=== PATIENT | male | born 1990 | race African-American/Black ===

== ENCOUNTER 2022-07-21 18:12 | Emergency (ER) | payer OTHER ==
[2022-07-21] MEDS ORDERED: LIDOCAINE 1% MPF 5 ML VIAL ONE (18:35)
--- NOTE | 2022-07-21 19:41 | EDPHYS ---
Physician Documentation [facility] Name: Yusef Aponte Age: 32 yrs Sex: Male : 1990 Arrival Date: 07/21/2022 Time: 18:14 Bed 14 Private MD: ED Physician Andrea Tristan HPI: 07/21 19:40 This 32 yrs old Black Male presents to ER via [employer] with complaints of kb Abscess. 19:40 The patient presents with an abscess of the right cheek. Description: erythematous, kb swollen, warm. Onset: The symptoms/episode began/occurred yesterday. Possible cause(s): unknown. Associated signs and symptoms: Pertinent positives: erythema, swelling. Modifying factors: the symptoms are alleviated by nothing, the symptoms are aggravated by nothing. Severity of symptoms: At their worst the symptoms were mild, in the emergency department the symptoms are unchanged. The patient has not experienced similar symptoms in the past. The patient has not recently seen a physician. Historical: - Allergies: 18:16 No Known Allergies; bp - Home Meds: 18:16 None [Active]; bp - PMHx: 18:16 None; bp - Immunization history:: Adult Immunizations up to date. - Social history:: Smoking status: unknown. ROS: 19:39 Constitutional: Negative for fever, chills, and weight loss. kb 19:39 Skin: Positive for abscess, of the right cheek. 19:39 All other systems are negative. Exam: 19:39 Constitutional: This is a well developed, well nourished patient who is awake, alert, kb and in no acute distress. Head/Face: Normocephalic, atraumatic. ENT: Moist Mucous membranes Cardiovascular: Regular rate and rhythm with a normal S1 and S2. No gallops, murmurs, or rubs. No pulse deficits. Respiratory: Respirations even and unlabored. No increased work of breathing. Talking in full sentences MS/ Extremity: Pulses equal, no cyanosis. Neurovascular intact. Full, normal range of motion. Neuro: Awake and alert, GCS 15, oriented to person, place, time, and situation. Moves all extremities. Normal gait. Psych: Awake, alert, with orientation to person, place and time. Behavior, mood, and affect are within normal limits. 19:39 Skin: abscess, that is small, of the right cheek, with induration. Vital Signs: 18:14 BP 128 / 74; Pulse 55; Resp 16; Temp 98; Pulse Ox 97% ; Weight 79.38 kg; Height 5 ft. bp 10 in. (177.80 cm); 19:45 BP 127 / 88; Pulse 51; Resp 18 S; Pulse Ox 99% on R/A; as6 18:14 Body Mass Index 25.11 (79.38 kg, 177.80 cm) bp Procedures: 19:38 I \T\ D: Incision and drainage was performed for an abscess of the right cheek Prepped kb with alcohol, Anesthetized with 1 ml's 1% Lidocaine. Incised with #11 blade. Drained small amount purulent fluid. Dressing: bandaid. MDM: 18:17 Patient medically screened. kb 19:38 Data reviewed: vital signs, nurses notes. Data interpreted: Pulse oximetry: on room air kb is 97 %. Interpretation: normal. Counseling: I had a detailed discussion with the patient and/or guardian regarding: the historical points, exam findings, and any diagnostic results supporting the discharge/admit diagnosis, the need for outpatient follow up, a family practitioner, to return to the emergency department if symptoms worsen or persist or if there are any questions or concerns that arise at home. 07/21 18:30 Order name: I\T\D Setup; Complete Time: 18:41 kb Administered Medications: 18:40 Drug: Lidocaine (1 %) 1 vials {Note: AT B/S FOR PROVIDER.} Volume: 5 ml; Route: bp Infiltration; 19:46 Follow up: Response: No adverse reaction as6 19:44 Drug: Bactrim (trimethoprim-sulfamethoxazole) (160 mg-800 mg (DS) 1 tablet Route: PO; as6 19:46 Follow up: Response: No adverse reaction as6 Disposition Summary: 07/21/22 19:41 Discharge Ordered Location: Home kb Condition: Stable kb Diagnosis - Cutaneous abscess of face - right cheek kb Followup: kb - With: Emergency Department - When: As needed - Reason: Worsening of condition Followup: kb - With: Private Physician - When: 2 - 3 days - Reason: Recheck today's complaints, Continuance of care, Re-evaluation by your physician Discharge Instructions: - Discharge Summary Sheet kb - Skin Abscess, [id number] kb Forms: - Medication Reconciliation Form kb - Thank You Letter kb - Antibiotic Education kb - Prescription Opioid Use kb Prescriptions: - Bactrim DS 800-160 mg Oral Tablet - take 1 tablet by ORAL route every 12 hours for 10 days; 20 tablet; Refills: 0, kb Product Selection Permitted Addendum: 07/23/2022 07:35 Co-signature as Attending Physician, Andrea Tristan MD. r n Signatures: Lisa Sifuentes, NETWORK FIELD ENGINEER-C NETWORK FIELD ENGINEER-Ckb Andrea Tristan MD MD rn Guillermo Wise, RN RN bp Deric Dominguez RN RN as6
--- NOTE | 2022-07-21 19:41 | ER ---
Nurse's Notes [facility] Name: Yusef Aponte Age: 32 yrs Sex: Male : 1990 Arrival Date: 07/21/2022 Time: 18:14 Bed 14 Private MD: Diagnosis: Cutaneous abscess of face-right cheek Presentation: 07/21 18:14 Chief complaint: Patient states: R CHEEK "SPIDER BITE". Coronavirus screen: At this bp time, the client does not indicate any symptoms associated with coronavirus-19. Ebola Screen: No symptoms or risks identified at this time. Initial Sepsis Screen: Does the patient meet any 2 criteria? No. Patient's initial sepsis screen is negative. Does the patient have a suspected source of infection? Yes: Skin breakdown/wound. Risk Assessment: Do you want to hurt yourself or someone else? Patient reports no desire to harm self or others. Note SENT BY MEDICAL FOR I\\T\\D. Onset of symptoms is unknown. 18:14 Method Of Arrival: [employer]: [place] [employer] bp 18:14 Acuity: KENY 3 bp Triage Assessment: 18:16 General: Appears in no apparent distress. uncomfortable, Behavior is calm, cooperative, bp appropriate for age. Pain: Complains of pain in right cheek. EENT: No deficits noted. Neuro: No deficits noted. Cardiovascular: No deficits noted. Respiratory: No deficits noted. GI: No signs and/or symptoms were reported involving the gastrointestinal system. : No signs and/or symptoms were reported regarding the genitourinary system. Derm: Abscess located on right cheek is quarter sized. Musculoskeletal: No deficits noted. Historical: - Allergies: 18:16 No Known Allergies; bp - Home Meds: 18:16 None [Active]; bp - PMHx: 18:16 None; bp - Immunization history:: Adult Immunizations up to date. - Social history:: Smoking status: unknown. Screenin:17 Abuse screen: Denies threats or abuse. Denies injuries from another. Nutritional bp screening: No deficits noted. Tuberculosis screening: No symptoms or risk factors identified. Fall Risk None identified. Assessment: 18:17 General: SEE TRIAGE NOTE. bp 19:00 Reassessment: Patient appears in no apparent distress at this time. Patient and/or jb4 family updated on plan of care and expected duration. Pain level reassessed. Patient is alert, oriented x 3, equal unlabored respirations, skin warm/dry/pink. 19:35 Reassessment: Provider at bedside performing I\\T\\D. jb4 Vital Signs: 18:14 BP 128 / 74; Pulse 55; Resp 16; Temp 98; Pulse Ox 97% ; Weight 79.38 kg; Height 5 ft. bp 10 in. (177.80 cm); 19:45 BP 127 / 88; Pulse 51; Resp 18 S; Pulse Ox 99% on R/A; as6 18:14 Body Mass Index 25.11 (79.38 kg, 177.80 cm) bp ED Course: 18:14 Patient arrived in ED. bp 18:15 Triage completed. bp 18:17 Lisa Sifuentes FNP-C is [facility]. kb 18:17 Andrea Tristan MD is Attending Physician. kb 18:17 Arm band placed on. bp 18:17 Patient has correct armband on for positive identification. Bed in low position. Call bp light in reach. Side rails up X2. 18:31 Guillermo Wise, RN is Primary Nurse. bp 19:35 Assist provider with I \\T\\ D: of an abscess on right side of face. jb4 19:45 Patient did not have IV access during this emergency room visit. as6 Administered Medications: 18:40 Drug: Lidocaine (1 %) 1 vials {Note: AT B/S FOR PROVIDER.} Volume: 5 ml; Route: bp Infiltration; 19:46 Follow up: Response: No adverse reaction as6 19:44 Drug: Bactrim (trimethoprim-sulfamethoxazole) (160 mg-800 mg (DS) 1 tablet Route: PO; as6 19:46 Follow up: Response: No adverse reaction as6 Medication: 18:17 VIS not applicable for this client. bp Outcome: 19:41 Discharge ordered by . kb 19:45 Discharged to [employer] as6 19:45 Condition: stable 19:45 Discharge instructions given to patient, Instructed on discharge instructions, follow up and referral plans. medication usage, Demonstrated understanding of instructions, follow-up care, medications, Prescriptions given X 1. 19:46 Patient left the ED. as6 Signatures: Lisa Sifuentes FNP-C FNP-David Clark RN RN jb4 Guillermo Wise, RN RN bp Deric Dominguez, RN RN as6
[2022-07-21] MEDS ORDERED: SMZ./TMP. 800/160 MG TABLET ONE (19:42)
[2022-07-21 20:00] VITALS: TEMP 98
[2022-07-21 20:01] VITALS: BP 127/88; O2SAT 99
== END 2022-07-21 19:46 | disposition home or self-care (01) ==
LOC: ER 18:12
PROC: 0J910ZZ Drainage of Face Subcutaneous Tissue and Fascia, Open Approach (ICD-10-PCS; principal; 2022-07-21)
DX: L02.01 Cutaneous abscess of face (principal)
CPT/HCPCS: 99283; J2001